=== PATIENT | female | born 1980 | race Caucasian/White ===

== ENCOUNTER 2020-06-12 09:04 | Day surgery (SDC) | payer OTHER ==
[2020-06-10 16:07] LABS: BASOPHILS 0.2 % (0-2); EOSINOPHILS 1.4 % (0-7); HEMATOCRIT 36.7 % (36.0-48.0); HEMOGLOBIN 12.4 g/dL (12-16); IMMATURE GRANULOCYTES 0.2 % (0-5); LYMPHOCYTE ABS# 1.03 10x3/uL (1.18-3.74); LYMPHOCYTES 20.6 % (15-50); MCH 33.2 pg (26.0-34.0); MCHC 33.8 g/dL (31.0-37.0); MCV 98.4 fL (80.0-100.0); MEAN PLATELET VOLUME 10.3 fL (7.4-10.4); MONOCYTES 6.4 % (2-11); NEUTROPHIL ABS# 3.57 10x3/uL (1.56-6.13); NEUTROPHILS 71.2 % (40-80); PLATELET COUNT 259 10x3/uL (130-400); RBC 3.73 10x6/uL (4.00-5.40); RDW 12.5 % (11.5-14.5)
[~2020-06-12] VITALS: Ht 160 cm; Wt 62.3 kg
--- NOTE | ~2020-06-12 | OP ---
PATIENT NAME: OMAIRA FERRELL MEDICAL RECORD: [id number] :84 LOCATION:D.OPS ADMISSION DATE: SURGEON: SABA CARABALLO MD DATE OF OPERATION: 06/12/2020 DATE OF SERVICE: 06/12/2020 PREOPERATIVE DIAGNOSIS: Pelvic pain. POSTOPERATIVE DIAGNOSES: 1. Pelvic pain. 2. Endometriosis. PROCEDURE PERFORMED: 1. Diagnostic laparoscopy. 2. Fulguration of endometriosis. SURGEON: Saba Caraballo MD ANESTHESIOLOGIST: Dr. Gao. ANESTHESIA: General. FINDINGS: There are clear blebs and hypervascularity consistent with endometriosis in the cul-de-sac, left greater than right, along the uterosacral ligaments. There are no adhesions. Both ovaries and tubes unremarkable. SPECIMEN REMOVED: Not applicable. SPECIMEN DISPOSITION: Not applicable. ESTIMATED BLOOD LOSS: Minimal. FLUIDS: 400 mL of lactated Ringer's. URINE OUTPUT: Quantity sufficient. INDICATION: The patient is a 40-year-old female with dyspareunia and pelvic pain that is cyclic and worsening. The patient is consented for diagnostic laparoscopy and any indicated procedure. DESCRIPTION OF PROCEDURE: After informed consent was assured, the patient was taken to the operating room where anesthetic was obtained without difficulty. Incision was made at the umbilicus to accommodate a 5-mm trocar, which was inserted without difficulty and pneumoperitoneum developed. Accessory ports were now placed in the midline and in the right lower quadrant. Through the midline port, a grasper was used to manipulate the uterus and bowel free of the pelvis. The cul-de-sac was inspected with the above findings. Using Bovie cautery with a setting of 20 verde, the active endometriosis along the uterosacral ligaments was fulgurated. Once this has been completed, pneumoperitoneum is released as the trocars were removed. A primary trocar was now removed and all sites closed with a subcuticular stitch and Dermabond applied. Sponge, lap, and needle counts were correct times two. TRANSINT:[id number] Voice Confirmation ID: [id number] DOCUMENT ID: [id number] OPERATIVE REPORT [id number] OMAIRA FERRELL SABA CARABALLO MD CC: [id number] DICTATION DATE: 06/27/20 1335 [facility]: 06/27/20 1409 [facility] 06/12/20 [place] [id number] [place], [place] [id number]
[~2020-06-12 09:04] MED LIST: BENTYL 20 MG TA20 MG PO; CYCLOBENZAPRINE10 MG PO; FLAGYL500 MG PO; MACROBID100 MG PO; MEDROL DOSE PACK4 MG PO; PEPCID AC20 MG PO; PROZAC10 MG PO; TOPAMAX100 MG PO; VALTREX500 MG PO; XYLOCAINE HCL 2%5 ML UR
[2020-06-12 09:26] LABS: HCG URINE NEGATIVE (NEGATIVE)
[2020-06-12 09:31] LABS: UDS - AMPHET NEGATIVE QUAL (NEGATIVE); UDS - BARB NEGATIVE QUAL (NEGATIVE); UDS - BENZO NEGATIVE QUAL (NEGATIVE); UDS - COCAINE NEGATIVE QUAL (NEGATIVE); UDS - OPIATE NEGATIVE QUAL (NEGATIVE); UDS - PCP NEGATIVE QUAL (NEGATIVE); UDS - THC NEGATIVE QUAL (NEGATIVE)
[2020-06-12 10:53] VITALS: BP 106/56; Ht 160 cm; Wt 62.3 kg
--- NOTE | 2020-06-12 18:01 | NUR ---
IV D/C'D WITH CANNULA INTACT, PRESSURE HELD AND DRSG PLACED. DISCHARGE INSTRUCTIONS GIVEN AND PT VERBALIZED AN UNDERSTANDING. STATES PAINIS NOW 3/10 AND DENIES C/O.
== END 2020-06-12 17:15 | disposition home or self-care (01) ==
LOC: D.OPS 09:04
PROVIDERS: Anesthesiology; ATTEND Obstetrics & Gynecology
DX: R10.2 Pelvic and perineal pain (principal); N80.8 Other endometriosis